=== PATIENT | female | born 1995 | race Caucasian/White ===

== ENCOUNTER → 2016-09-30 | Outpatient (CLI) | payer MEDICAID ==
[2016-09-30 18:25] LABS: ABSOLUTE BASOPHILS # (AUTO) 0.1 10^3/uL (0.0-0.2); ABSOLUTE EOSINOPHILS # (AUTO) 0.3 10^3/uL (0.0-0.6); ABSOLUTE LYMPHOCYTES (AUTO) 2.3 10^3/uL (0.5-4.7); ABSOLUTE MONOCYTES (AUTO) 0.8 10^3/uL (0.1-1.4); BASOPHILS % (AUTO) 0.4 % (0-2); HEMATOCRIT 37.7 % (36.0-47.0); HEMOGLOBIN 12.4 g/dL (12.0-15.5); HGB HCT DIFFERENCE -0.5; LYMPHOCYTES % (AUTO) 16.1 % (13-45); MEAN CORPUSCULAR HEMOGLOBIN 29.8 pg (27.0-33.4); MEAN CORPUSCULAR VOLUME 90 fl (80-97); MONOCYTES % (AUTO) 5.6 % (3-13); RED BLOOD COUNT 4.17 10^6/uL (3.72-5.28); RED CELL DISTRIBUTION WIDTH 14.7 % (11.5-14.0); SEGMENTED NEUTROPHILS % (AUTO) 75.9 % (42-78); WHITE BLOOD COUNT 14.4 10^3/uL (4.0-10.5)
== END ==
LOC: OD 17:09
PROVIDERS: ATTEND Student in an Organized Health Care Education/Training Program
DX: N93.9 Abnormal uterine and vaginal bleeding, unspecified (principal); R68.89 Other general symptoms and signs
CPT/HCPCS: 36415; 84702; 85025

== ENCOUNTER → 2017-07-06 | Outpatient (CLI) | payer MEDICAID ==
[2017-07-06 15:10] LABS: ABSOLUTE BASOPHILS # (AUTO) 0.1 10^3/uL (0.0-0.2); ABSOLUTE EOSINOPHILS # (AUTO) 0.5 10^3/uL (0.0-0.6); ABSOLUTE LYMPHOCYTES (AUTO) 2.5 10^3/uL (0.5-4.7); BASOPHILS % (AUTO) 0.4 % (0-2); EOSINOPHILS % (AUTO) 3.2 % (0-6); HEMATOCRIT 42.5 % (36.0-47.0); HEMOGLOBIN 14.4 g/dL (12.0-15.5); HGB HCT DIFFERENCE 0.7; LYMPHOCYTES % (AUTO) 15.4 % (13-45); MEAN CORPUSCULAR HEMOGLOBIN 31.4 pg (27.0-33.4); MEAN CORPUSCULAR HGB CONC 33.9 g/dL (32.0-36.0); MEAN CORPUSCULAR VOLUME 93 fl (80-97); MONOCYTES % (AUTO) 6.2 % (3-13); RED BLOOD COUNT 4.58 10^6/uL (3.72-5.28); RED CELL DISTRIBUTION WIDTH 13.5 % (11.5-14.0); SEGMENTED NEUTROPHILS % (AUTO) 74.8 % (42-78); WHITE BLOOD COUNT 16.1 10^3/uL (4.0-10.5)
== END ==
LOC: LAB 14:46
PROVIDERS: ATTEND Nurse Practitioner Family
DX: J02.9 Acute pharyngitis, unspecified (principal)
CPT/HCPCS: 36415; 85025

== ENCOUNTER 2019-02-12 18:50 | Outpatient (CLI) | payer MEDICAID ==
[2019-02-12 19:52] LABS: APPEARANCE,URINE SLIGHTLY-CLOUDY; BILIRUBIN,URINE NEGATIVE (NEGATIVE); COLOR,URINE YELLOW; GLUCOSE, URINE NEGATIVE (NEGATIVE); KETONES,URINE 20 mg/dL (NEGATIVE); LEUKOCYTE ESTERASE,URINE NEGATIVE (NEGATIVE); NITRITE,URINE NEGATIVE (NEGATIVE); PROTEIN,URINE NEGATIVE (NEGATIVE); URINE SPECIFIC GRAVITY 1.018; UROBILINOGEN,URINE NEGATIVE mg/dL (<2.0)
[2019-02-12 20:10] LABS: URINE AMPHETAMINES SCREEN NEGATIVE; URINE BARBITURATES SCREEN NEGATIVE; URINE BENZODIAZEPINES SCREEN NEGATIVE; URINE COCAINE SCREEN NEGATIVE; URINE MARIJUANA (THC) SCREEN NEGATIVE; URINE METHADONE SCREEN NEGATIVE; URINE PHENCYCLIDINE SCREEN NEGATIVE
== END 2019-02-12 20:11 | disposition home or self-care (01) ==
LOC: LC 18:50
PROVIDERS: ATTEND Obstetrics & Gynecology
DX: O47.9 False labor, unspecified (principal); O36.8190 Decreased fetal movements, unspecified trimester, not applicable or unspecified
CPT/HCPCS: 80307; 81001

== ENCOUNTER 2019-05-18 11:41 | Inpatient (IN) | payer MEDICAID ==
[2019-05-18] MEDS ORDERED: CITRIC ACID/SODIUM CITRATE ORAL SOLN 15 ML UDCUP ONE (11:44)
[2019-05-18] MEDS ORDERED: CEFAZOLIN INJ 1 GM VIAL ONE (11:47)
[2019-05-18] MEDS ORDERED: CEFAZOLIN 1 GM/D5W RTU 1 GM/50 ML RTUPB IV ONE (11:47)
[2019-05-18] MEDS ORDERED: RINGERS SOLUTION,LACTATED 1,000 ML IV ONE (12:30)
[2019-05-18 12:42] LABS: APPEARANCE,URINE SLIGHTLY-CLOUDY; BILIRUBIN,URINE NEGATIVE (NEGATIVE); COLOR,URINE YELLOW; GLUCOSE, URINE NEGATIVE (NEGATIVE); KETONES,URINE NEGATIVE (NEGATIVE); LEUKOCYTE ESTERASE,URINE NEGATIVE (NEGATIVE); NITRITE,URINE POSITIVE (NEGATIVE); PROTEIN,URINE NEGATIVE (NEGATIVE); URINE SPECIFIC GRAVITY 1.014; UROBILINOGEN,URINE NEGATIVE mg/dL (<2.0)
[2019-05-18 12:53] LABS: URINE AMPHETAMINES SCREEN NEGATIVE; URINE BARBITURATES SCREEN NEGATIVE; URINE BENZODIAZEPINES SCREEN NEGATIVE; URINE COCAINE SCREEN NEGATIVE; URINE MARIJUANA (THC) SCREEN NEGATIVE; URINE METHADONE SCREEN NEGATIVE; URINE PHENCYCLIDINE SCREEN NEGATIVE
--- NOTE | 2019-05-18 12:55 | Admission Physical ---
Datetime Report Generated by CPN: 05/18/2019 12:55 CURRENT ADMISSION Chief Complaint: Scheduled Section Indication for Induction: Not Applicable Admit Impression : Term, Intrauterine Admit Plan: Initiate Section Protocol ALLERGIES Medication Allergies: Yes Medication Allergies: amoxicillin/MO/Hives (02/12/2019) Latex: No Latex Allergies OBSTETRICAL HISTORY EDC: 05/25/2019 00:00 : 4 Para: 2 Term: 2 : 0 SAB: 1 Ectopic: 0 Livin Cesareans: 2 VBACs: 0 Gestational Diabetes: No Rh Sensitization: No Incompetent Cervix: No JONNY: No Infertility: No ART Treatment: No Uterine Anomaly: No IUGR: No Hx Previous C/S: Yes Macrosomia: No Hx Loss/Stillborn: No PIH: No Hx : No Placenta Previa/Abruption: No Depression/PP Depression: No PTL/PROM: No Post Hemorrhage: Yes Current Procedures: Ultrasound Obstetrical History Comments: - 2012 40.3 7lbs 5oz for failure to progress, PPH, - 2013 SAB 4 weeks G3- 38 week 6lbs 5 oz DVT at 8 weeks, kidney stones, gallstones, cholecystectomy G4- Current SEE RECORDS Alcohol: No Marijuana : No Cocaine: No Other Illicit Drugs: No Cigarettes: Former Smoker. 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: No Heart Disease: No Hosp/Surgery: Yes Autoimmune Disorder: No Anesthetic Complications: No Kidney Disease: Yes Abnormal Pap Smear: No Neuro/Epilepsy: No Psychiatric Disorders: No Other Medical Diseases: No Hepatitis/Liver Disease: No Significant Family History: No Varicosities/Phlebitis: No Trauma/Violence : No Thyroid Dysfunction: No Medical History Comments: , blood clot left leg at 8 weeks last - on lovenox 80mg BID, BMI 33, 11/02/ E coli KINGS 12/25 INFECTIOUS HISTORY Gonorrhea: No Genital Herpes: No Chlamydia: No Tuberculosis: No Syphilis: No Hepatitis: No HIV/AIDS Exposure: No Rash or Viral Illness: No HPV: No PHYSICAL EXAM General: Normal HEENT: Normal Neurologic: Normal Thyroid: Normal Heart: Normal Lungs: Normal Breast: Deferred Back: Normal Abdomen: Normal Genitourinary Exam: Normal Extremities: Normal DTRs: Normal Pelvic Type: Adequate FETUS A EGA: 39.0 PLANS FOR LABOR AND DELIVERY Labor and Delivery: None Feeding Preference: Breast Benefit of Breast Feed Discussed: Yes Circumcision: N/A INFORMED CONSENT Signature: with User ID: [email or web address]
[2019-05-18 13:14] LABS: ABSOLUTE BASOPHILS # (AUTO) 0.2 10^3/uL (0.0-0.2); ABSOLUTE EOSINOPHILS # (AUTO) 0.3 10^3/uL (0.0-0.6); ABSOLUTE LYMPHOCYTES (AUTO) 2.6 10^3/uL (0.5-4.7); ABSOLUTE MONOCYTES (AUTO) 1.1 10^3/uL (0.1-1.4); ABSOLUTE NEUT (AUTO) 12.5 10^3/uL (1.7-8.2); BASOPHILS % (AUTO) 0.9 % (0-2); HEMATOCRIT 31.4 % (36.0-47.0); HEMOGLOBIN 10.9 g/dL (12.0-15.5); LYMPHOCYTES % (AUTO) 15.7 % (13-45); MEAN CORPUSCULAR HEMOGLOBIN 31.2 pg (27.0-33.4); MEAN CORPUSCULAR HGB CONC 34.6 g/dL (32.0-36.0); MEAN CORPUSCULAR VOLUME 90 fl (80-97); MONOCYTES % (AUTO) 6.3 % (3-13); PLATELET COUNT 244 10^3/uL (150-450); RED BLOOD COUNT 3.49 10^6/uL (3.72-5.28); RED CELL DISTRIBUTION WIDTH 14.2 % (11.5-14.0); SEGMENTED NEUTROPHILS % (AUTO) 75.1 % (42-78); TOTAL CELLS COUNTED % (AUTO) 100 %; WHITE BLOOD COUNT 16.6 10^3/uL (4.0-10.5)
[2019-05-18 13:17] LABS: INTERNATIONAL RATION (INR) 0.93; PROTHROMBIN TIME 12.5 SEC (11.4-15.4)
[2019-05-18 13:18] LABS: PARTIAL THROMBOPLASTIN TIME 26.6 SEC (23.5-35.8)
[2019-05-18] MEDS ORDERED: FENTANYL CITRATE INJ/PF 100 MCG/2 ML AMPUL ONE (13:20)
[2019-05-18] MEDS ORDERED: OXYTOCIN 10 UNIT/ML VIAL ONE (13:20)
[2019-05-18] MEDS ORDERED: EPHEDRINE SULFATE INJ 50 MG/1 ML AMPULE ONE (13:20)
[2019-05-18] MEDS ORDERED: ONDANSETRON HCL INJ/PF 4 MG/2 ML SDV ONE (13:21)
[2019-05-18] MEDS ORDERED: MIDAZOLAM 2 MG/2 ML INJ ONE (13:21)
[2019-05-18] MEDS ORDERED: OXYTOCIN/NORMAL SALINE 20 UNIT/1,000 ML RTUINJ ONE (13:21)
[2019-05-18] MEDS ORDERED: DIPHENHYDRAMINE HCL 50 MG/ML VIAL IV PRN (13:59)
[2019-05-18] MEDS ORDERED: MEPERIDINE HCL/PF INJ 25 MG/1 ML DISP.SYRIN IV PRN (13:59)
[2019-05-18] MEDS ORDERED: MORPHINE SULFATE 10 MG/ML INJ IV PRN (13:59)
[2019-05-18] MEDS ORDERED: PROMETHAZINE HCL INJ 25 MG/1 ML VIAL IV PRN ×2 (13:59→14:08)
[2019-05-18] MEDS ORDERED: ONDANSETRON HCL INJ/PF 4 MG/2 ML SDV IV PRN (13:59)
[2019-05-18] MEDS ORDERED: FENTANYL CITRATE INJ/PF 100 MCG/2 ML AMPUL IV PRN ×3 (13:59)
[2019-05-18] MEDS ORDERED: NALBUPHINE HCL INJ 10 MG/1 ML AMPULE IM ONE (14:00)
[2019-05-18] MEDS ORDERED: MORPHINE SULFATE 10 MG/ML INJ IM PRN (14:08)
[2019-05-18] MEDS ORDERED: OXYTOCIN/NORMAL SALINE 20 UNIT/1,000 ML RTUINJ IV PRN (14:08)
[2019-05-18] MEDS ORDERED: MEASLES,MUMPS&RUBELLA VACC/PF 0.5 ML VIAL SUBCUT PRN (14:08)
[2019-05-18] MEDS ORDERED: SIMETHICONE 80 MG TAB.CHEW PO PRN (14:08)
[2019-05-18] MEDS ORDERED: ACETAMINOPHEN 325 MG TABLET PO PRN (14:08)
[2019-05-18] MEDS ORDERED: DIPH/PERTUSS(ACELL)/TETANUS VAC/PF 0.5 ML SYR (>=10YO) IM PRN (14:08)
[2019-05-18] MEDS ORDERED: ACETAMINOPHEN 1,000 MG/100 ML RTUPB IV PRN (14:08)
--- NOTE | 2019-05-18 14:12 | Operative Report ---
Operative Report DATE OF SURGERY: 05/18/19 PREOPERATIVE DIAGNOSIS: IUP at 38 and 6 weeks prior section history of a DVT sterilization POSTOPERATIVE DIAGNOSIS: Same OPERATION: Repeat low transverse section delivery of a healthy male and a bilateral tubal occlusion with Filshie clips ANESTHESIA: Spinal PROCEDURE: The patient was taken to the operating room where spinal anesthesia was obtained and found to be adequate. She was then prepped and draped in the normal sterile fashion and placed in the dorsal supine position with a leftward tilt. A Pfannenstiel skin incision was then made and carried through to the underlying layers of the fascia with the scalpel. The fascia was incised in the midline and the incision extended laterally with the Pino scissors. The superior aspect of the fascial incision was then grasped with [place] clamps elevated and the underlying rectus muscles dissected off bluntly. Attention was then turned to the inferior aspect of the fascial incision which in a similar fashion was grasped, tented up with Janie clamps, and the rectus muscles dissected off bluntly. The rectus muscles were then in the midline and the peritoneum at the amount identified and entered bluntly. The peritoneal incision was then extended superiorly and inferiorly with good visualization of the bladder. [The bladder blade was inserted and the vesicouterine peritoneum identified grasped with [place] pickups and entered sharply with the Metzenbaum scissors. His incision was then extended laterally with the Metzenbaum scissors and a bladder flap created digitally. The bladder blade was then reinserted and the lower uterine segment incised in a transverse fashion with the scalpel. The uterine incision was then extended bluntly. The bladder blade was removed and the infant's head was delivered from cephalic presentation atraumatically. The nose and mouth were suctioned and the cord doubly clamped and cut. And the was handed off to waiting pediatricians. The placenta was then delivered manully and the uterus exteriorized and cleared of all clots and debris. The uterine incision was then repaired with 1-0 Vicryl in a running locked fashion. A second layer of the same suture was used to obtain hemostasis via imbrication of the initial layer. The uterus was returned to the patient's abdomen. The gutters were cleared of all clots and debris. All operative sites were noted to be hemostatic. The right and left fallopian tube were occluded with Filshie clips in the proximal portion of the tube. Both tubes were identified to the fimbria are prior to and after occlusion. The fascia was reapproximated with 0 Vicryl in a running fashion from each lateral edge to the midline. The patient tolerated the procedure well. Sponge lap needle and instrument counts are correct -2. 2 g of Ancef were given prior to skin incision. The patient was taken to the recovery area awake and in stable condition.
[2019-05-18] MEDS ORDERED: DIPHENHYDRAMINE HCL 50 MG/ML VIAL ONE ×2 (14:21→14:25)
[2019-05-18] MEDS: OXYCODONE-ACETAMINOPHEN 5-325 MG TABLET PO PRN ×2 (16:56→21:31)
[2019-05-18] MEDS ORDERED: DOCUSATE SODIUM 100 MG CAPSULE PO SCH (18:00)
[2019-05-18] MEDS: LAMOTRIGINE 25 MG TAB.CHEW PO SCH (21:21)
[2019-05-18] MEDS: KETOROLAC TROMETHAMINE INJ/PF 30 MG/1 ML SDV IV SCH (21:21)
[2019-05-19] MEDS: OXYCODONE-ACETAMINOPHEN 5-325 MG TABLET PO PRN ×3 (03:42→17:35)
[2019-05-19] MEDS: KETOROLAC TROMETHAMINE INJ/PF 30 MG/1 ML SDV IV SCH (05:54)
[2019-05-19 07:26] LABS: HEMOGLOBIN 9.1 g/dL (12.0-15.5); MEAN CORPUSCULAR HEMOGLOBIN 31.1 pg (27.0-33.4); MEAN CORPUSCULAR HGB CONC 33.9 g/dL (32.0-36.0); MEAN CORPUSCULAR VOLUME 92 fl (80-97); PLATELET COUNT 158 10^3/uL (150-450); RED BLOOD COUNT 2.94 10^6/uL (3.72-5.28); RED CELL DISTRIBUTION WIDTH 14.1 % (11.5-14.0); WHITE BLOOD COUNT 14.4 10^3/uL (4.0-10.5)
[2019-05-19] MEDS: PRENATAL VITAMIN W DHA CAPSULE PO SCH (10:19)
--- NOTE | 2019-05-19 11:03 | PDOC PROGRESS REPORT ---
Subjective-OB Progress Note for:: 05/19/19 - POD#1, doing well, s/p Rpt , Hx Factor V Leiden, will restart Heparin this morning, Pt encourged to wear OCTAVIA hose and ambulate. doing well, no compaints, B negative. Rubella Immune. Physical Exam (OB) Vital Signs: Temp Pulse Resp BP Pulse Ox 98.2 F 66 16 93/57 L 100 05/19/19 07:22 05/19/19 07:22 05/19/19 07:22 05/19/19 07:22 05/19/19 07:22 Intake & Output 05/18/19 05/19/19 05/20/19 06:59 06:59 06:59 Intake Total 800 Output Total 1800 Balance -1000 Weight 88.5 kg - General General Appearance: Appears well, Alert In distress: None - PIH/Pre-Eclampsia Clonus: Negative Headache: Absent Epigastric Pain: No Visual Changes: No - Dressing Removed: No Incision: Dressing Closure Type: Surgical Glue - Lochia Lochia Amount: Small 10-25 ml Lochia Color: Rubra/Red - Abdomen Description: Tender, Soft Hernia Present: No Fundal Description: Firm, Midline Fundal Height: u/u - u/2 - Respiratory Respiratory Status: No respiratory distress Breath sounds: Clear - Cardiovascular Rhythm: Regular Heart Sounds: Normal auscultation - Abdominal Inspection: Normal Distension: No distension Tenderness: Nontender Abdominal Notes: +bowel sounds - Genitourinary Genitourinary Note: voiding - Extremities Upper extremity: Normal inspection Lower extremities: Normal inspection - Neurological Cognition: Normal Orientation: AAOx4 - Psychological Associated symptoms: Normal affect, Normal mood - Skin Skin Temperature: Warm Skin Moisture: Dry Objective-Diagnostic Laboratory: 05/19/19 06:53 05/18/19 05/18/19 05/18/19 11:56 12:50 12:50 WBC 16.6 H RBC 3.49 L Hgb 10.9 L Hct 31.4 L MCV 90 MCH 31.2 MCHC 34.6 RDW 14.2 H Plt Count 244 Seg Neutrophils % 75.1 Urine Color YELLOW Urine Appearance SLIGHTLY-CLOUDY Urine pH 7.0 Ur Specific [place] 1.014 Urine Protein NEGATIVE Urine Glucose (UA) NEGATIVE Urine Ketones NEGATIVE Urine Blood NEGATIVE Urine Nitrite POSITIVE H Ur Leukocyte Esterase NEGATIVE Blood Type B NEGATIVE Antibody Screen POSITIVE 05/19/19 05/19/19 06:53 06:53 WBC 14.4 H RBC 2.94 L Hgb 9.1 L Hct 27.0 L MCV 92 MCH 31.1 MCHC 33.9 RDW 14.1 H Plt Count 158 Seg Neutrophils % Urine Color Urine Appearance Urine pH Ur Specific [place] Urine Protein Urine Glucose (UA) Urine Ketones Urine Blood Urine Nitrite Ur Leukocyte Esterase Blood Type B NEGATIVE Antibody Screen Assessment and Plan(PN) - Assessment and Plan (1) Factor V Leiden mutation affecting Is this a current diagnosis for this admission?: Yes (2) Acute blood loss anemia Is this a current diagnosis for this admission?: Yes (3) Status post repeat low transverse section Is this a current diagnosis for this admission?: Yes - Time Spent with Patient Medications reviewed and adjusted accordingly: Yes - Disposition Anticipated Discharge: Home Within: within 48 hours
[2019-05-19] MEDS: HEPARIN SOD (PORCINE) 5,000 UNIT/ML 1 ML VIAL SUBCUT SCH (13:19)
[2019-05-19] MEDS: DOCUSATE SODIUM 100 MG CAPSULE PO SCH ×2 (13:19→17:36)
[2019-05-19] MEDS: FERROUS SULFATE 325 MG TABLET PO SCH (13:19)
[2019-05-19] MEDS: IBUPROFEN 800 MG TABLET PO SCH ×2 (14:43→21:45)
[2019-05-19] MEDS ORDERED: IBUPROFEN 800 MG TABLET PO SCH (18:00)
[2019-05-19] MEDS: LAMOTRIGINE 25 MG TAB.CHEW PO SCH (21:45)
[2019-05-20] MEDS: IBUPROFEN 800 MG TABLET PO SCH ×2 (03:04→09:14)
[2019-05-20 07:41] VITALS: BP 110/62
[2019-05-20] MEDS: HEPARIN SOD (PORCINE) 5,000 UNIT/ML 1 ML VIAL SUBCUT SCH (09:14)
[2019-05-20] MEDS: PRENATAL VITAMIN W DHA CAPSULE PO SCH (09:14)
[2019-05-20] MEDS: DOCUSATE SODIUM 100 MG CAPSULE PO SCH (09:14)
[2019-05-20] MEDS: FERROUS SULFATE 325 MG TABLET PO SCH (09:15)
--- NOTE | 2019-05-20 09:46 | PDOC DISCHARGE SUMMARY ---
Impression - Admit/DC Date/PCP Admission Date/Primary Care Provider: 05/18/19 11:44 HAZEL MALDONADO MD Discharge Date: 05/20/19 - POD #2, doing well, no complaints, has been up out of bed, desires to go home today B negative, Baby is RH+, needs Rhogam, Rubella Immune. Pt on SubQ heparin and will resume the Lovenox once she is at home. She has been instructed to f/u with her Heme/Oncology MD. - Discharge Diagnosis (1) Factor V Leiden mutation affecting Is this a current diagnosis for this admission?: Yes (2) Acute blood loss anemia Is this a current diagnosis for this admission?: Yes (3) Status post repeat low transverse section Is this a current diagnosis for this admission?: Yes - Additional Information Resuscitation Status: Full Code Discharge Diet: As Tolerated, Regular Discharge Activity: Activity As Tolerated, No Lifting Over 10 Pounds, Pelvic Rest Referrals: HAZEL MALDONADO MD [Primary Care Provider] - Prescriptions: Ibuprofen [Motrin 800 mg Tablet] 800 mg PO Q6A #60 tablet Oxycodone HCl/Acetaminophen [Percocet 5-325 mg Tablet] 1 tab PO Q4HP PRN #30 tablet PRN Reason: Pain Scale Of 4 Home Medications: 95/Iron Fum/Folic/Dha [ + Dha Combo Pack] 1 cap PO DAILY 02/12/19 Lamotrigine [Lamictal] 25 mg PO DAILY 05/18/19 Ibuprofen [Motrin 800 mg Tablet] 800 mg PO Q6A #60 tablet 05/20/19 Oxycodone HCl/Acetaminophen [Percocet 5-325 mg Tablet] 1 tab PO Q4HP PRN #30 tablet 05/20/19 HPI Reason(s) for Admission: Ceasarean Section-Repeat, Medical Complications, Obstetric Complications Procedures: NST, Ultrasound Intrapartum Procedure(s): : Low Cervical, Transverse, Tubal Ligation Hospital Course Hospital Course: normal Results Laboratory Results: WBC 14.4 10^3/uL (4.0-10.5) H 05/19/19 06:53 RBC 2.94 10^6/uL (3.72-5.28) L 05/19/19 06:53 Hgb 9.1 g/dL (12.0-15.5) L 05/19/19 06:53 Hct 27.0 % (36.0-47.0) L 05/19/19 06:53 MCV 92 fl (80-97) 05/19/19 06:53 MCH 31.1 pg (27.0-33.4) 05/19/19 06:53 MCHC 33.9 g/dL (32.0-36.0) 05/19/19 06:53 RDW 14.1 % (11.5-14.0) H 05/19/19 06:53 Plt Count 158 10^3/uL (150-450) 05/19/19 06:53 Lymph % (Auto) 15.7 % (13-45) 05/18/19 12:50 [place] % (Auto) 6.3 % (3-13) 05/18/19 12:50 Eos % (Auto) 2.0 % (0-6) 05/18/19 12:50 Baso % (Auto) 0.9 % (0-2) 05/18/19 12:50 Absolute Neuts (auto) 12.5 10^3/uL (1.7-8.2) H 05/18/19 12:50 Absolute Lymphs (auto) 2.6 10^3/uL (0.5-4.7) 05/18/19 12:50 Absolute Monos (auto) 1.1 10^3/uL (0.1-1.4) 05/18/19 12:50 Absolute Eos (auto) 0.3 10^3/uL (0.0-0.6) 05/18/19 12:50 Absolute Basos (auto) 0.2 10^3/uL (0.0-0.2) 05/18/19 12:50 Seg Neutrophils % 75.1 % (42-78) 05/18/19 12:50 PT 12.5 SEC (11.4-15.4) 05/18/19 12:50 INR 0.93 05/18/19 12:50 APTT 26.6 SEC (23.5-35.8) 05/18/19 12:50 Urine Color YELLOW 05/18/19 11:56 Urine Appearance SLIGHTLY-CLOUDY 05/18/19 11:56 Urine pH 7.0 (5.0-9.0) 05/18/19 11:56 Ur Specific [place] 1.014 05/18/19 11:56 Urine Protein NEGATIVE mg/dL (NEGATIVE) 05/18/19 11:56 Urine Glucose (UA) NEGATIVE mg/dL (NEGATIVE) 05/18/19 11:56 Urine Ketones NEGATIVE mg/dL (NEGATIVE) 05/18/19 11:56 Urine Blood NEGATIVE (NEGATIVE) 05/18/19 11:56 Urine Nitrite POSITIVE (NEGATIVE) H 05/18/19 11:56 Urine Bilirubin NEGATIVE (NEGATIVE) 05/18/19 11:56 Urine Urobilinogen NEGATIVE mg/dL (<2.0) 05/18/19 11:56 Ur Leukocyte Esterase NEGATIVE (NEGATIVE) 05/18/19 11:56 Urine Ascorbic Acid NEGATIVE (NEGATIVE) 05/18/19 11:56 Urine Opiates Screen NEGATIVE 05/18/19 11:56 Urine Methadone Screen NEGATIVE 05/18/19 11:56 Ur Barbiturates Screen NEGATIVE 05/18/19 11:56 Ur Phencyclidine Scrn NEGATIVE 05/18/19 11:56 Ur Amphetamines Screen NEGATIVE 05/18/19 11:56 U Benzodiazepines Scrn NEGATIVE 05/18/19 11:56 Urine Cocaine Screen NEGATIVE 05/18/19 11:56 U Marijuana (THC) Screen NEGATIVE 05/18/19 11:56 Blood Type B NEGATIVE 05/19/19 06:53 Antibody Screen POSITIVE 05/18/19 12:50 Antibody Identification RHOGAM INDUCED ANTI-D 05/18/19 12:50 Screen NEGATIVE 05/19/19 06:53 Plan Health Concerns: DVT precautions reviewed w/ patient Plan of Treatment: will d/c home today, OCTAVIA rice at home, encouraged ambulation, will resume Lovenox. Pt to f/u with her Heme/Onc physician. Pt to f/u at [facility] in one week for an incision check
--- NOTE | 2019-06-28 17:03 | Delivery Summary ---
Del Sum A-C Datetime Report Generated by CPN: 06/28/2019 17:03 DELIVERY PERSONNEL DELIVERY PERSONNEL: [id number] Delivery Doctor:: Lee Gant MD Anesthesiologist:: Alondra Tipton MD MARKETING RESEARCH COORDINATOR:: Harjit Pacheco, MARKETING RESEARCH COORDINATOR Iron Setter:: Anushka Watts, RN Sociology Instructor/NETWORK MGR: Layla Apodaca, ST Sociology Instructor/NETWORK MGR: Tien Shannan, DIRECTOR MEDICAL SCIENCE MATERNAL INFORMATION Delivery Anesthesia: Spinal Medications After Delivery: Pitocin Drip 20 Units/1000ml NSS Delivery QBL: 910 Maternal Complications: None Other Maternal Complications: prior DVT LABOR SUMMARY EDC: 05/25/2019 00:00 No. Babies in Womb: 1 Attempted: No LABOR INFORMATION Reason for Induction: Not Applicable Steroids Given: None Reason Steroids Not Administered: Not Applicable STAGES OF LABOR Stage 3 hr: 0 Stage 3 min: 1 VAGINAL DELIVERY Episiotomy: None Laceration #1: None Laceration Extension #1: N/A Laceration Repair: Not Applicable Sponge Count Correct: N/A Sharps Count Correct: N/A CSECTION DELIVERY Primary Indication: Repeat Elective CSection Urgency: Scheduled CSection Incidence: Repeat Labor: No Labor Elective: Nonelective CSection Incision: Lower Uterine Transverse Sterilization Procedure: Ring and Clip BABY A INFORMATION Infant Delivery Date/Time: 05/18/2019 13:49 Method of Delivery: Born in Route : No : N/A Forceps: N/A Vacuum Extraction: N/A Shoulder Dystocia : No PRESENTATION/POSITION BABY A Presentation: Cephalic Cephalic Presentation: Vertex Breech Presentation: N/A PLACENTA INFORMATION BABY A Placenta Delivery Time : 05/18/2019 13:50 Placenta Method of Delivery: Manual Removal Placenta Status: Delivered INFORMATION BABY A Gestational Age at Delivery: 39.0 Gestational Status: Full Term- 39- 40.6 Weeks Outcome : Liveborn Condition : Stable Infant Sex: Female WEIGHT/LENGTH BABY A Infant Birthweight (gm): 2755 Weight (lb): 6 Infant Weight (oz): 1 Length (in): 19.50 Length (cm): 49.53 CORD INFORMATION BABY A No. Cord Vessels: 3 Nuchal Cord : Around Neck x2, Loose Cord Blood Taken: Yes-For Eval (Mom's Blood Type - or O+) Suction: Mouth; Nose ASSESSMENT BABY A Skin to Skin: Yes BABY B INFORMATION : N/A SIGNATURES Signature: with User ID: [email or web address] Signature: with User ID: [email or web address] : with User ID: [email or web address]
== END 2019-05-20 11:33 | disposition home or self-care (01) | DRG 784 ==
LOC: LC 11:41 → LR 11:44 → 2S 16:15
PROVIDERS: ADMIT Obstetrics & Gynecology Gynecology; ATTEND Obstetrics & Gynecology Gynecology
PROC: 10D00Z1 Extraction of Products of Conception, Low, Open Approach (ICD-10-PCS; principal; 2019-05-18)
PROC: 0UL70CZ Occlusion of Bilateral Fallopian Tubes with Extraluminal Device, Open Approach (ICD-10-PCS; 2019-05-18)
DX: O99.12 Other diseases of the blood and blood-forming organs and certain disorders involving the immune mechanism complicating childbirth (principal); D68.51 Activated protein C resistance; D62 Acute posthemorrhagic anemia; O34.211 Maternal care for low transverse scar from previous cesarean delivery; O90.81 Anemia of the puerperium; O69.81X0 Labor and delivery complicated by cord around neck, without compression, not applicable or unspecified; Z30.2 Encounter for sterilization; Z88.1 Allergy status to other antibiotic agents; Z87.891 Personal history of nicotine dependence; Z3A.39 39 weeks gestation of pregnancy; Z37.0 Single live birth; Z86.718 Personal history of other venous thrombosis and embolism
CPT/HCPCS: 1961; 36415; 80307; 81005; 85025; 85027; 85461; 85610; 85730; 86592; 86850; 86870; 86900; 86901; 94799; J0690; J1200; J1644; J1885; J2250; J2405; J2550; J2590; J2790; J3010; J3490